=== PATIENT | female | born 1980 | race Caucasian/White ===

== ENCOUNTER → 2016-09-18 | Outpatient (CLI) | payer OTHER, BC ==
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
== END | disposition home or self-care (01) ==
LOC: DXRADRC 11:28
PROVIDERS: ATTEND Physician Assistant
DX: S22.43XD Multiple fractures of ribs, bilateral, subsequent encounter for fracture with routine healing (principal); V89.2XXD Person injured in unspecified motor-vehicle accident, traffic, subsequent encounter
CPT/HCPCS: 71111

== ENCOUNTER → 2016-10-30 | Outpatient (CLI) | payer OTHER, BC ==
--- NOTE | 2016-10-30 15:46 | RAD ---
Left RIBS, 2 views, 10/30/2016: History: Pain Comparison is made to a study from 09/18/2016. Fractures of the anterolateral aspects of the left fifth and sixth ribs are again noted. These are slightly displaced. There appears to be a small amount of developing callus. No new rib fracture is identified. No underlying pulmonary infiltrate, pneumothorax or hemothorax is seen. A spinal stimulator device extends into the thoracic spinal canal. IMPRESSION: 1. Subacute fractures of the left fifth and sixth ribs. 2. No new abnormality is detected.
== END | disposition home or self-care (01) ==
LOC: DXRADRC 14:10
PROVIDERS: ATTEND Physician Assistant
DX: S22.42XD Multiple fractures of ribs, left side, subsequent encounter for fracture with routine healing (principal); V89.2XXD Person injured in unspecified motor-vehicle accident, traffic, subsequent encounter
CPT/HCPCS: 71100

== ENCOUNTER → 2017-11-25 | Outpatient (CLI) | payer MEDICARE ==
--- NOTE | 2017-11-25 13:02 | RAD ---
EXAM: Lumbar spine, 5 views; thoracic spine, 3 views. HISTORY: Pain. Spinal stimulator. COMPARISON: None. FINDINGS: Thoracic spine: Frontal, lateral and swimmer's views of the thoracic spine are obtained. There is no listhesis. The vertebral bodies are normal in height and the disc spaces are preserved. There are hypoplastic T12 ribs, a normal variant. There is a spinal stimulator generator within the left flank with leads extend cephalad to terminate at T3. Lumbar spine: Frontal, lateral, bilateral oblique and coned sacral views of the lumbar spine are obtained. There is no significant scoliosis or listhesis. The vertebral bodies are normal in height and the disc spaces are preserved. There are few small endplate Schmorl's nodes. IMPRESSION: 1. Mild degenerative changes within the lumbar spine. 2. No acute osseous finding. 3. Spinal stimulator leads terminating at T3. Electronically signed by: Nabila Sawyer MD (11/25/2017 12:59 PM) [id number]
== END | disposition home or self-care (01) ==
LOC: PMG 12:19
PROVIDERS: ATTEND Physician Assistant
DX: M51.46 Schmorl's nodes, lumbar region (principal)
CPT/HCPCS: 72072; 72110

== ENCOUNTER → 2019-01-26 | Outpatient (CLI) | payer OTHER ==
[2018-03-18 11:20] VITALS: BP 118/76
[~2019-01-26] MED LIST: CHOL2000 PO; ESCITALOPRAM OX20 MG PO; FENO145T30 PO; HYDR-2765 PO; INSU100I30 SQ; INSU100V31 SQ; IOHEXOL 240 MG/ML 50ML VIAL. ONE; IOHEXOL 240 MG/ML 50ML VIAL. PO ONE; IOHEXOL 300 MG/ML 75 ML VIAL. IV ONE; LIPA1CAP14 PO; LISI10TA2 PO; METF100010 PO; OMEG-33 PO; PANT40TA5 PO; PHEN15CA2 PO; PRAV20TA2 PO; SPIR50TA4 PO; TOPI50TA38 PO; ZOLP10TA PO
[2019-01-26 11:15] LABS: ALBUMIN 3.8 g/dL (3.4-5.0); ALBUMIN/GLOBULIN RATIO 1.1 (1.0-1.7); CALCIUM 9.5 mg/dL (8.5-10.1); GFR 61.7; POTASSIUM 4.1 mmol/L (3.5-5.1); TOTAL BILIRUBIN 0.2 mg/dL (0.2-1.0); TOTAL PROTEIN 7.3 g/dL (6.4-8.2)
--- NOTE | 2019-01-26 12:47 | RAD ---
Examination: CT abdomen pelvis with IV contrast HISTORY: History of left abdominal pain, fever COMPARISON: None available TECHNIQUE: Axial CT images of the abdomen pelvis are performed with oral and IV contrast. Coronal and sagittal reformats are performed Exposure: One or more of the following individualized dose reduction techniques were utilized for this examination: 1. Automated exposure control 2. Adjustment of the mA and/or kV according to patient size 3. Use of iterative reconstruction technique FINDINGS: Minimal bibasilar lung atelectasis. No evidence of free air identified in the abdomen diffuse decreased attenuation noted in the liver likely hepatic steatosis. The spleen, adrenals grossly appears unremarkable. Cholecystectomy clips identified. The visualized pancreas grossly appears unremarkable. The stomach is mildly distended. The small bowel is nondilated. Appendix is normal. Feces and gas noted in the colon. There is mild fat stranding identified in the proximal sigmoid colon region, best visualized on series 2 image #67. Urinary bladder is mildly distended. The bilateral kidneys enhance symmetrically. Cystic structures identified in the bilateral kidneys with the largest measuring 3.7 cm and the left kidney likely cysts. There is minimal fat stranding identified about the right kidney. Minimal degenerative thoracolumbar spine. IMPRESSION: 1. Minimal fat stranding identified about the proximal sigmoid colon. Differential includes epiploic appendagitis or mild diverticulitis. 2. Questionable minimal fat stranding identified about the right kidney, nonspecific, urinary tract infection is not excluded. Correlate with urine analysis. 3. Bilateral renal cysts. Follow-up Ultrasound of the bilateral kidneys can be considered. 4. Hepatic steatosis. Electronically signed by: Ebenezer Patterson MD (01/26/2019 12:45 PM) [id number]
== END | disposition home or self-care (01) ==
LOC: CT 09:42
PROVIDERS: ATTEND Physician Assistant Medical
DX: N28.1 Cyst of kidney, acquired (principal); K76.0 Fatty (change of) liver, not elsewhere classified; K31.89 Other diseases of stomach and duodenum; N32.89 Other specified disorders of bladder; J98.11 Atelectasis; M47.814 Spondylosis without myelopathy or radiculopathy, thoracic region; Z90.49 Acquired absence of other specified parts of digestive tract
CPT/HCPCS: 36415; 74177; 80053; Q9966; Q9967

== ENCOUNTER 2019-11-27 16:55 | Emergency (ER) | payer MEDICARE, OTHER ==
[~2019-11-27] VITALS: Ht 147.3 cm; Wt 106.8 kg
[~2019-11-27 16:55] MED LIST changes: +FENO145T3 PO; -FENO145T30 PO; -IOHEXOL 240 MG/ML 50ML VIAL. ONE; -IOHEXOL 240 MG/ML 50ML VIAL. PO ONE; -IOHEXOL 300 MG/ML 75 ML VIAL. IV ONE
[2019-11-27] MEDS ORDERED: IV NORMAL SALINE 1,000ML 1,000 ML IV ONE (17:30)
[2019-11-27 17:32] VITALS: BP 106/77
--- NOTE | 2019-11-27 17:54 | PHYS DOC ---
Past History Past Medical History: Anxiety, Arthritis, Depression, Other Additional Past Medical Histor: apnea; pancreatitis (CONRAD IRVING DO) Past Surgical History: Tubal ligation (CONRAD IRVING DO) Alcohol Use: None (CONRAD IRVING DO) General Adult EDM: Chief Complaint: VAGINAL PROBLEM HPI: HPI: Patient is a 39 year old female who presents for evaluation of groin area right labial pain and swelling. She is concerned she may have a skin abscess present. She currently rates her pain is 9 out of 10. Symptoms have been progressing for the past 2 days. Patient also complains of some lower abdominal discomfort and cramping as well. (CONRAD IRVING DO) HPI: ".. I got this infected area.. down in my...in my vaginal area.. I had this once before.. it so swollen... I cant walk..." Pt. has develope a Lt labial abscess. Patient is reports development of the left labial abscess in the last 2 days. Patient currently states she is unable to walk because of the severe pain in left labial area. Patient denies any his tory immunosuppression. Patient denies any history of vaginal discharge. Patient has had history of previous abscess at same location. Infection appeared to start approximately 2 days ago. Patient rating her pain in her left labial area 10 out of 10. No history of travel. No history of specific ill contacts. No history of STDs. (JUANA CHAMBERLAIN MD) Review of Systems: Review of Systems: Constitutional: Denies fever or chills Eyes: Denies change in visual acuity HENT: Denies nasal congestion or sore throat Respiratory: Denies cough or shortness of breath Cardiovascular: Denies chest pain or edema GI: mild lower abdominal pain, no nausea, vomiting, bloody stools or diarrhea : Denies dysuria, groin area pain and swelling from a possible skin abscess Musculoskeletal: Denies back pain or joint pain Integument: Denies rash Neurologic: Denies headache, focal weakness or sensory changes Endocrine: Denies polyuria or polydipsia Lymphatic: Denies swollen glands Psychiatric: Denies depression or anxiety (CONRAD IRVING DO) Review of Systems: Review of systems negative except for findings of complaints of left labial abscess (JUANA CHAMBERLAIN MD) Heart Score: Risk Factors: Risk Factors: DM, Current or recent (<one month) smoker, HTN, HLP, family history of CAD, obesity. Risk Scores: Score 0 - 3: 2.5% MACE over next 6 weeks - Discharge Home Score 4 - 6: 20.3% MACE over next 6 weeks - Admit for Clinical Observation Score 7 - 10: 72.7% MACE over next 6 weeks - Early Invasive Strategies (CONRAD IRVING DO) Family History: Family History: Noncontributory to presentation (JUANA CHAMBERLAIN MD) Current Medications: Current Meds: Current Medications Medications (Trade) Dose Ordered Sig/Alex Start Time Stop Time Status Last Admin Dose Admin Fentanyl Citrate (Fentanyl 2ml Vial) 50 mcg 1X ONCE 11/27/19 17:45 11/27/19 17:46 DC 11/27/19 17:43 50 MCG Sodium Chloride 1,000 ml @ 150 mls/hr 1X ONCE 11/27/19 17:30 11/28/19 00:09 11/27/19 17:43 150 MLS/HR (CONRAD IRVING DO) Current Meds: See nursing for home meds (JUANA CHAMBERLAIN MD) Allergies: Allergies: Allergies Coded Allergies Type Severity Reaction Last Updated Verified Vhyemby-Iue-Hpi Reductase Inhibitor Allergy Unknown 03/16/18 Yes metoclopramide Allergy Unknown 03/16/18 Yes (CONRAD IRVING DO) Allergies: Allergic to statins and Reglan (JUANA CHAMBERLAIN MD) Physical Exam: PE: Constitutional: Well developed, well nourished, mild acute distress, non-toxic appearance. [] HENT: Normocephalic, atraumatic, bilateral external ears normal, oropharynx moist [] Eyes: PERRL, EOMI, conjunctiva normal. [] Neck: Normal range of motion, no tenderness. [] Cardiovascular:Heart rate regular rhythm, no murmur [] Lungs & Thorax: Bilateral breath sounds clear to auscultation [] Abdomen: Bowel sounds normal, soft, mild suprappubic tender. [] Skin: Warm, dry, no erythema, no rash. [] Back: No tenderness. [] Extremities: No tenderness, no cyanosis, ROM intact. [] Neurologic: Alert and oriented, normal motor function, normal sensory function, no focal deficits noted. [] Psychologic: anxious affect, judgement normal [] (CONRAD IRVING DO) PE: HEENT-pupils equal reactive. Extraocular muscles intact. No stridor. Chest- breath sounds equal, no stridor. No wheezing Cardiovascular regular rate and rhythm no appreciable murmur Abdomen-obese. No organomegaly. Bowel sounds present all 4 quadrants. Old surgery scars. Genital-left labial area has a very inflamed, obvious abscess approximately 4 x 4 cm, surrounding erythema and adenopathy. Extremities trace ankle edema. Limps because of groin pain. (JUANA CHAMBERLAIN MD) Current Patient Data: Vital Signs: Vital Signs Date Time Temp Pulse Resp B/P (MAP) Pulse Ox O2 Delivery O2 Flow Rate FiO2 11/27/19 17:32 98.9 120 28 106/77 (87) 100 (CONRAD IRVING DO) EKG: EKG: [] (CONRAD IRVING DO) Radiology/Procedures: Radiology/Procedures: [] (CONRAD IRVING DO) Course & Med Decision Making: Course & Med Decision Making Pertinent Labs and Imaging studies reviewed. (See chart for details) [] (CONRAD IRVING DO) Course & Med Decision Making See Dr. Irving's notes for further detail. Procedure note- area of abscess and cellulitis cleaned with Betadine. Use of 11 blade with 1 stick drained copious amount of purulent pus. Broke down the septations. Dressing applied. Patient to use sitz bath 4 times a day. Patient take Bactrim DS twice a day.. Patient warned that if has recurrent abscess dislocation may need complete surgical removal of area. Monitor closely for improvement. May take Tylenol and ibuprofen for pain for marked pain may take Vicoprofen. Return if any concerns. Follow-up primary care. Patient does report marked relief of discomfort after incision and drainage. Impression: 1. Labial abscess left (JUANA CHAMBERLAIN MD) Dragon Disclaimer: Momo Disclaimer: This electronic medical record was generated, in whole or in part, using a voice recognition dictation system. 1800 Care of patient turned over to Dr. Florian at shift change (CONRAD IRVING DO) Departure Departure: Impression: Primary Impression: Pelvic pain Additional Impression: Abscess, groin Disposition: 01 HOME/RESIDENCE PRIOR TO ADM Condition: STABLE Referrals: MAHAMED RILEY (PCP) Scripts Hydrocodone/Ibuprofen (HYDROCODONE-IBUPROFEN 7.5-200 ) 1 Each Tablet 1 TAB PO PRN Q6HRS PRN for PAIN, #30 TAB 0 Refills Prov: JUANA CHAMBERLAIN MD 11/27/19 Sulfamethoxazole/Trimethoprim (BACTRIM DS TABLET) 1 Each Tablet 1 TAB PO BID for abscess for 10 Days, #20 TAB 0 Refills Prov: JUANA CHAMBERLAIN MD 11/27/19 Justification of Admission: Justification of Admission: Justification of Admission Dx: N/A (CONRAD IRVING DO) Justification of Admission Dx: N/A (JUANA CHAMBERLAIN MD) Dragon Disclaimer This chart was dictated in whole or in part using Voice Recognition software in a busy, high-work load, and often noisy Emergency Department environment. It may contain unintended and wholly unrecognized errors or omissions. (JUANA CHAMBERLAIN MD) Dragon Disclaimer This chart was dictated in whole or in part using Voice Recognition software in a busy, high-work load, and often noisy Emergency Department environment. It may contain unintended and wholly unrecognized errors or omissions. (CONRAD IRVING DO) CONRAD IRVING DO Nov 27, 2019 17:54 JUANA CHAMBERLAIN MD Nov 27, 2019 18:17
[2019-11-27 18:08] LABS: BASO # 0.1 x10^3/uL (0.0-0.2); BASO % 1 % (0-3); EOS # 0.1 x10^3/uL (0.0-0.7); EOS % 1 % (0-3); HEMATOCRIT 40.3 % (36.0-47.0); HEMOGLOBIN 13.6 g/dL (12.0-15.5); LYMPH # 2.1 x10^3/uL (1.0-4.8); LYMPH % 26 % (24-48); MEAN CORPUSCULAR HEMOGLOBIN 30 pg (25-35); MEAN CORPUSCULAR HGB CONC 34 g/dL (31-37); MEAN CORPUSCULAR VOLUME 89 fL (79-100); MONO # 0.6 x10^3/uL (0.0-1.1); MONO % 7 % (0-9); NEUT # 5.4 x10^3uL (1.8-7.7); NEUT % 65 % (31-73); PLATELET COUNT 216 x10^3/uL (140-400); RED BLOOD COUNT 4.54 x10^6/uL (3.50-5.40); RED CELL DISTRIBUTION WIDTH 13.3 % (11.5-14.5); WHITE BLOOD COUNT 8.3 x10^3/uL (4.0-11.0)
[2019-11-27] MEDS ORDERED: IV NORMAL SALINE 50ML 50 ML ONE (18:17)
[2019-11-27] MEDS ORDERED: MORPHINE SULFATE 10 MG/ML SYRINGE. ONE (18:17)
[2019-11-27] MEDS ORDERED: cefTRIAXone SODIUM 1 GM VIAL ONE (18:17)
[2019-11-27 18:18] LABS: CALCIUM 9.4 mg/dL (8.5-10.1); CREATININE 1.2 mg/dL (0.6-1.0); GFR 49.8; POTASSIUM 3.6 mmol/L (3.5-5.1)
[2019-11-27] MEDS ORDERED: SMZ/TMP 800/160MG TABLET. PO ONE ×2 (18:18→18:30)
[2019-11-27 18:20] LABS: PREG TEST PT QUAL NEGATIVE (NEG)
[2019-11-27 18:25] LABS: ALBUMIN 3.9 g/dL (3.4-5.0); ALBUMIN/GLOBULIN RATIO 1.1 (1.0-1.7); TOTAL BILIRUBIN 0.2 mg/dL (0.2-1.0); TOTAL PROTEIN 7.3 g/dL (6.4-8.2)
[2019-11-27] MEDS ORDERED: cefTRIAXone IM 1 GM VIAL IM ONE (18:30)
[2019-11-27] MEDS ORDERED: MORPHINE SULFATE 10 MG/ML SYRINGE. SQ ONE (18:30)
[2019-11-27] MEDS ORDERED: HYDR-1179 PO (18:35)
[2019-11-27] MEDS ORDERED: SULF1TAB24 PO (18:35)
[2019-11-27] MEDS ORDERED: DIPH,PERTUSS(ACELL),TET VAC/PF 0.5 ML SYRINGE. VAX IM ONE (18:45)
== END 2019-11-27 19:15 | disposition home or self-care (01) ==
LOC: ER 16:55
DX: N76.4 Abscess of vulva (principal); R10.2 Pelvic and perineal pain; M19.90 Unspecified osteoarthritis, unspecified site; Z98.51 Tubal ligation status; Z88.8 Allergy status to other drugs, medicaments and biological substances
CPT/HCPCS: 36415; 56405; 80053; 84703; 85025; 90471; 90715; 96372; 96374; 99284; J0696; J2270; J3010; J7030

== ENCOUNTER → 2020-07-05 | Outpatient (CLI) | payer MEDICARE ==
[~2020-07-05] MED LIST changes: +HYDR-1179 PO; +LISI10TA16 PO; -LISI10TA2 PO; -PANT40TA5 PO; +PANT40TA6 PO; +SULF1TAB24 PO
--- NOTE | 2020-07-06 12:33 | RAD ---
DATE: 07/05/2020 11:07 AM EXAM: MAMMO MICHELET SCREENING BILATERAL HISTORY: Screening COMPARISON: 11/11/2014 Bilateral CC and MLO views of the breasts were performed. Bilateral breast tomosynthesis was performed in CC and MLO projections. This study was interpreted with the benefit of Computerized Aided Detection (CAD). FINDINGS: Breast Density: FATTY The Breast Parenchyma is primarily fatty replaced. Breast parenchyma level density A. No suspicious masses, microcalcifications or architectural distortion is present to suggest malignancy in either breast. The visualized axillae are unremarkable. IMPRESSION: No mammographic evidence of malignancy. BI-RADS CATEGORY: 1 NEGATIVE RECOMMENDED FOLLOW-UP: 12M 12 MONTH FOLLOW-UP Annual screening mammography is recommended, unless clinically indicated sooner based on symptoms or change in physical exam. PQRS compliance statement: Patient information was entered into a reminder system with a target due date for the next mammogram. Mammography is a sensitive method for finding small breast cancers, but it does not detect them all and is not a substitute for careful clinical examination. A negative mammogram does not negate a clinically suspicious finding and should not result in delay in biopsying a clinically suspicious abnormality. "Our facility is accredited by the [employer] Mammography Program."
== END ==
LOC: MAMMO 10:40
PROVIDERS: ATTEND Physician Assistant
DX: Z12.31 Encounter for screening mammogram for malignant neoplasm of breast (principal)
CPT/HCPCS: 77063; 77067